=== PATIENT | female | born 1955 | race Caucasian/White ===

== ENCOUNTER 2020-11-07 17:38 | Emergency (ER) | payer OTHER ==
[2020-11-07 17:51] VITALS: BP 146/89; BMI 32.9
[2020-11-07] MEDS ORDERED: ACETAMINOPHEN 500 MG TABLET (FP) PO ONE (17:51)
[2020-11-07 18:49] VITALS: PULSE 90
== END 2020-11-07 18:49 | disposition home or self-care (01) ==
LOC: JCOVINFU 17:38
DX: U07.1 COVID-19 (principal)
CPT/HCPCS: 71046-TC-FY; 99283-25; C9803; U0003

== ENCOUNTER 2020-11-08 09:12 | Emergency (ER) | payer OTHER ==
[2020-11-08 09:45] VITALS: BMI 32.9
[2020-11-08] MEDS ORDERED: ACETAMINOPHEN 325 MG TABLET (FP) PO ONE (10:45)
[2020-11-08 10:47] LABS: BASO % 0.2 % (0-2.0); HEMATOCRIT 40.2 % (32.4-45.2); HEMOGLOBIN 13.9 GM/dL (10.7-15.3); LYMPH % 22.6 % (8-40); MCH 29.8 pg (25.7-33.7); MCHC 34.5 g/dl (32.0-36.0); MEAN CELL VOLUME 86.5 fl (80-96); MEAN PLT VOLUME 9.1 fl (7.5-11.1); MONO % 8.8 % (3.8-10.2); NEUT % 68.4 % (42.8-82.8); PLATELET COUNT 152 K/MM3 (134-434); RBC 4.64 M/mm3 (3.60-5.2); RDW 13.5 % (11.6-15.6); WHITE BLOOD COUNT 5.1 K/mm3 (4.0-10.0)
[2020-11-08] MEDS ORDERED: BAMLANIVIMAB 700 MG in SODIUM CHLORIDE 180 ML IVPB ONE (11:00)
[2020-11-08 11:09] LABS: POTASSIUM 3.7 mmol/L (3.5-5.1)
[2020-11-08 11:11] LABS: CALCIUM 8.8 mg/dL (8.5-10.1)
[2020-11-08 11:12] LABS: ALBUMIN 3.9 g/dl (3.4-5.0); BLOOD UREA NITROGEN 15.7 mg/dL (7-18)
[2020-11-08 11:15] LABS: CREATININE 1.1 mg/dL (0.55-1.3)
[2020-11-08 11:16] LABS: BILIRUBIN,TOTAL 0.8 mg/dL (0.2-1); TOT PROT 7.3 g/dl (6.4-8.2)
[2020-11-08 11:49] VITALS: TEMP 98.2
[2020-11-08] MEDS ORDERED: methylPREDNISolone NA SUCC 125 MG/2 ML VIAL ONE (12:13)
[2020-11-08] MEDS ORDERED: FAMOTIDINE 20 MG/50 ML IVPB 20 MG/50 ML MG IVPB ONE ×2 (12:13→12:22)
[2020-11-08] MEDS ORDERED: methylPREDNISolone NA SUCC 125 MG/2 ML VIAL IVPUSH ONE (12:22)
[2020-11-08 12:26] VITALS: BP 105/63; PULSE 89
== END 2020-11-08 15:19 | disposition home or self-care (01) ==
LOC: JER 09:12
PROC: 3E03329 Introduction of Other Anti-infective into Peripheral Vein, Percutaneous Approach (ICD-10-PCS; principal; 2020-11-08)
PROC: 3E033GC Introduction of Other Therapeutic Substance into Peripheral Vein, Percutaneous Approach (ICD-10-PCS; 2020-11-08)
PROC: 3E033GC Introduction of Other Therapeutic Substance into Peripheral Vein, Percutaneous Approach (ICD-10-PCS; 2020-11-08)
DX: U07.1 COVID-19 (principal)
CPT/HCPCS: 36415; 80053; 85025; 99284-25; M0239; Q0239